=== PATIENT | female | born 1980 | race Caucasian/White ===

== ENCOUNTER 2021-07-13 07:52 | Inpatient (IN) ==
[2021-07-13] MEDS ORDERED: CeFAZolin Syr 2,000MG/20 ML 2,000 MG/20 ML SYRINGE IVPB ONE (08:19)
[2021-07-13] MEDS ORDERED: *HR* Rocuronium Bromide 50 MG/5 ML VIAL ONE ×3 (08:25→12:24)
[2021-07-13] MEDS ORDERED: *HR* Succinylcholine 200 MG/10 ML VIAL IVP ONE (08:25)
[2021-07-13] MEDS ORDERED: Lidocaine HCL 4 ML Topical Solution (Laryng-O-Jet Kit Sterile Pak) TP ONE (08:25)
[2021-07-13] MEDS ORDERED: Lidocaine -MPF 2% 2 ML VIAL ONE (08:25)
[2021-07-13] MEDS ORDERED: *HR* Propofol 200 MG/20 ML VIAL IVP ONE (08:25)
[2021-07-13] MEDS ORDERED: *HR* Midazolam HCl 2 MG/2 ML VIAL ONE (08:25)
[2021-07-13] MEDS ORDERED: *HR* FentaNYL (PF) 100 MCG/2 ML VIAL ONE (08:25)
[2021-07-13] MEDS ORDERED: Ondansetron 4 MG/2 ML VIAL ONE (08:25)
[2021-07-13] MEDS ORDERED: Famotidine 20 MG TABLET PO ONE (08:30)
[2021-07-13] MEDS ORDERED: Ringers Solution, Lactated 1,000 ML IVC SCH ×2 (08:30→17:29)
[2021-07-13] MEDS ORDERED: Ondansetron 4 MG/2 ML VIAL IVP PRN ×2 (09:21→17:29)
[2021-07-13] MEDS ORDERED: *HR* HYDROmorphone PF 0.5 MG/0.5 ML SYRINGE IVP PRN (09:21)
[2021-07-13] MEDS ORDERED: Povidone-Iodine 45 ML, Sodium Chloride IRRigation 1,000 ML IR ONE (10:30)
[2021-07-13] MEDS ORDERED: Tranexamic Acid 1,000 MG/10 ML VIAL ONE ×2 (10:37→14:21)
[2021-07-13] MEDS ORDERED: Ketamine HCL *QUVA* 50mg (1mL) SYRINGE ONE (10:54)
[2021-07-13] MEDS ORDERED: EPHEDrine 50 MG/ML VIAL ONE (11:50)
[2021-07-13] MEDS ORDERED: *HR* HYDROMORPHONE 2 MG/ML VIAL ONE ×2 (12:01→13:57)
[2021-07-13] MEDS ORDERED: Sugammadex Sodium 200 MG/2 ML VIAL IV ONE (13:32)
[2021-07-13] MEDS: *HR* FentaNYL (PF) 100 MCG/2 ML VIAL IVP PRN ×4 (14:31→14:58)
[2021-07-13] MEDS ORDERED: *HR* OxyCODONE/APAP 5/325 TABLET PO PRN (15:42)
[2021-07-13] MEDS ORDERED: Ketorolac 30 MG/ML VIAL IVP PRN (15:42)
[2021-07-13] MEDS ORDERED: Pregabalin 75 MG CAPSULE PO ONE (15:45)
[2021-07-13] MEDS ORDERED: *HR* Promethazine 25 MG/ML VIAL IM PRN (17:29)
[2021-07-13] MEDS ORDERED: Sennosides 8.6 MG TABLET PO PRN (17:29)
[2021-07-13] MEDS ORDERED: *HR* HYDROmorphone (PF) 1 MG/ML SYRINGE IVP PRN (17:29)
[2021-07-13] MEDS ORDERED: *HR* OxyCODONE Immed Rel 5 MG TABLET PO PRN (17:29)
[2021-07-13] MEDS ORDERED: Naloxone 0.4 MG/ML INJ IVP PRN (17:29)
[2021-07-13] MEDS ORDERED: MOM Conc 10 ML UD.LIQ PO PRN (17:29)
[2021-07-13] MEDS: Ascorbic Acid 500 MG TABLET PO SCH (18:01)
[2021-07-13] MEDS: Gabapentin 300 MG CAPSULE PO SCH ×2 (18:01→20:32)
[2021-07-13] MEDS: Ketorolac 30 MG/ML VIAL IVP SCH ×2 (18:01→23:56)
[2021-07-13] MEDS: CeFAZolin 2 GM/120 ML BAG IVPB SCH (18:02)
[2021-07-13] MEDS: *HR* OxyCODONE Immed Rel 5 MG TABLET PO PRN (20:32)
[2021-07-14] MEDS: CeFAZolin 2 GM/120 ML BAG IVPB SCH (00:57)
[2021-07-14] MEDS: *HR* OxyCODONE Immed Rel 5 MG TABLET PO PRN ×6 (00:57→19:35)
[2021-07-14] MEDS: Ketorolac 30 MG/ML VIAL IVP SCH ×4 (04:47→23:41)
[2021-07-14] MEDS: Ascorbic Acid 500 MG TABLET PO SCH ×2 (06:17→16:09)
[2021-07-14] MEDS: Gabapentin 300 MG CAPSULE PO SCH ×3 (06:17→19:35)
[2021-07-14 06:56] LABS: Basophils % 0.1 %; Hematocrit 34.4 % (35.3-44.9); Immature Granulocytes % 0.3 % (0-4); Lymphocytes # 0.9 K/mcL (0.6-4.6); Lymphocytes % 8.7 %; Mean Corpuscular Hemoglobin 29.4 pg (28.0-33.3); Mean Platelet Volume 10.3 fL (9.4-12.4); Monocytes # 0.9 K/mcL (0.0-1.3); Monocytes % 8.5 %; Neutrophils # 8.5 K/mcL (1.6-8.9); Platelet Count 342 K/mcL (140-400); Red Blood Count 3.74 M/mcL (3.82-4.97); Red Cell Distribution Width 12.7 % (11.5-14.5); Segmented Neutrophils % 82.4 %; White Blood Count 10.3 K/mcL (4.3-11.1)
[2021-07-14 07:14] LABS: BUN/Creatinine Ratio 13 (6-26); Blood Urea Nitrogen 11 mg/dL (6-20); Carbon Dioxide 21 mEq/L (23-29); Chloride 104 mEq/L (98-107); Glucose 130 mg/dL (70-105); Osmolality,Calculated 279 (280-300); Potassium 4.1 mEq/L (3.5-5.1); Sodium 134 mEq/L (136-145); eGFR For African Americans > 60 (> 60); eGFR For Non-African Americans > 60 (> 60)
[2021-07-14] MEDS: Furosemide 20 MG TABLET PO SCH (08:21)
[2021-07-14] MEDS: Multivit/Ca/Min/Fe/FA 1 TAB TABLET PO SCH (08:21)
[2021-07-14] MEDS: Aspirin Enteric Coated 325 MG Tablet PO SCH ×2 (14:46→19:35)
[2021-07-15] MEDS: *HR* OxyCODONE Immed Rel 5 MG TABLET PO PRN ×4 (01:44→12:11)
[2021-07-15] MEDS: Ketorolac 30 MG/ML VIAL IVP SCH (04:23)
[2021-07-15 04:24] VITALS: TEMP 97.7
[2021-07-15 06:22] LABS: Basophils % 0.3 %; Eosinophils # 0.3 K/mcL (0.0-0.6); Eosinophils % 3.9 %; Hematocrit 34.6 % (35.3-44.9); Hemoglobin 10.9 g/dL (11.5-15.4); Immature Granulocytes % 0.3 % (0-4); Lymphocytes # 1.9 K/mcL (0.6-4.6); Mean Corpuscular HGB Conc 31.5 g/dL (31.6-35.5); Mean Corpuscular Hemoglobin 29.9 pg (28.0-33.3); Mean Corpuscular Volume 95.1 fL (83.0-100.0); Mean Platelet Volume 10.4 fL (9.4-12.4); Monocytes # 0.6 K/mcL (0.0-1.3); Monocytes % 8.3 %; Neutrophils # 4.7 K/mcL (1.6-8.9); Platelet Count 262 K/mcL (140-400); Red Blood Count 3.64 M/mcL (3.82-4.97); Red Cell Distribution Width 13.2 % (11.5-14.5); Segmented Neutrophils % 62.2 %; White Blood Count 7.5 K/mcL (4.3-11.1)
[2021-07-15 06:45] LABS: BUN/Creatinine Ratio 14 (6-26); Blood Urea Nitrogen 12 mg/dL (6-20); Calcium 8.7 mg/dL (8.6-10.3); Carbon Dioxide 23 mEq/L (23-29); Chloride 106 mEq/L (98-107); Glucose 94 mg/dL (70-105); Osmolality,Calculated 284 (280-300); Potassium 4.1 mEq/L (3.5-5.1); Sodium 137 mEq/L (136-145); eGFR For African Americans > 60 (> 60); eGFR For Non-African Americans > 60 (> 60)
[2021-07-15 07:02] VITALS: BP 121/71; PULSE 82; O2SAT 99
[2021-07-15] MEDS: Multivit/Ca/Min/Fe/FA 1 TAB TABLET PO SCH (09:07)
[2021-07-15] MEDS: Ascorbic Acid 500 MG TABLET PO SCH (09:07)
[2021-07-15] MEDS: Gabapentin 300 MG CAPSULE PO SCH (09:08)
[2021-07-15] MEDS: Furosemide 20 MG TABLET PO SCH (09:08)
[2021-07-15] MEDS: Aspirin Enteric Coated 325 MG Tablet PO SCH (09:08)
== END 2021-07-15 12:12 | disposition home or self-care (01) | DRG 467 ==
LOC: SDCAOSI 07:52 → 4WAOSI 16:46
PROVIDERS: ADMIT Orthopaedic Surgery; ATTEND Orthopaedic Surgery

== ENCOUNTER 2021-08-21 15:15 | Inpatient (IN) ==
[2021-08-21] MEDS ORDERED: *HR* HYDROmorphone (PF) 1 MG/ML SYRINGE IVP ONE ×2 (20:44→22:41)
[2021-08-21] MEDS ORDERED: Iopamidol - 370 500 ML MLS IVP ONE (20:44)
[2021-08-21 21:26] LABS: Basophils % 0.3 %; Eosinophils # 0.3 K/mcL (0.0-0.6); Eosinophils % 3.1 %; Hematocrit 33.3 % (35.3-44.9); Hemoglobin 10.3 g/dL (11.5-15.4); Immature Granulocytes % 0.7 % (0-4); Lymphocytes # 1.2 K/mcL (0.6-4.6); Lymphocytes % 12.3 %; Mean Corpuscular HGB Conc 30.9 g/dL (31.6-35.5); Mean Corpuscular Hemoglobin 28.2 pg (28.0-33.3); Mean Corpuscular Volume 91.2 fL (83.0-100.0); Mean Platelet Volume 9.1 fL (9.4-12.4); Monocytes # 0.6 K/mcL (0.0-1.3); Monocytes % 6.5 %; Neutrophils # 7.3 K/mcL (1.6-8.9); Platelet Count 605 K/mcL (140-400); Red Blood Count 3.65 M/mcL (3.82-4.97); Red Cell Distribution Width 13.1 % (11.5-14.5); Segmented Neutrophils % 77.1 %; White Blood Count 9.5 K/mcL (4.3-11.1)
[2021-08-21 21:46] LABS: Alanine Aminotransferase 24 Units/L (7-52); Albumin 3.6 g/dL (3.5-5.7); Albumin/Globulin Ratio 0.9 (1.1-2.2); Alkaline Phosphatase 129 Units/L (34-104); Aspartate Amino Transferase 18 Units/L (13-39); BUN/Creatinine Ratio 16 (6-26); Bilirubin,Total 0.3 mg/dL (0.3-1.0); Blood Urea Nitrogen 13 mg/dL (6-20); C-Reactive Protein 146 mg/L (Less than 10); Calcium 9.4 mg/dL (8.6-10.3); Carbon Dioxide 24 mEq/L (23-29); Chloride 98 mEq/L (98-107); Glucose 90 mg/dL (70-105); Osmolality,Calculated 272 (280-300); Potassium 4.3 mEq/L (3.5-5.1); Sodium 131 mEq/L (136-145); Total Protein 7.6 g/dL (6.4-8.9); eGFR For African Americans > 60 (> 60); eGFR For Non-African Americans > 60 (> 60)
[2021-08-21] MEDS ORDERED: Vancomycin 1,750 MG/517.5 ML IV.SOLN IVPB ONE (22:41)
[2021-08-21] MEDS ORDERED: cefTRIAXone 1,000 MG in Water for inj. (sterile) 10 ML IVP ONE (22:42)
[2021-08-22] MEDS ORDERED: *HR* HYDROmorphone (PF) 1 MG/ML SYRINGE IVP ONE (02:18)
[2021-08-22] MEDS ORDERED: Ondansetron 4 MG/2 ML VIAL IVP PRN ×2 (02:28→14:38)
[2021-08-22] MEDS ORDERED: Naloxone 0.4 MG/ML INJ IVP PRN ×2 (02:28→14:38)
[2021-08-22] MEDS ORDERED: Ketorolac 30 MG/ML VIAL IVP PRN (02:28)
[2021-08-22] MEDS ORDERED: Acetaminophen 325 MG TABLET PO PRN (02:28)
[2021-08-22] MEDS ORDERED: Lidocaine -MPF 2% 2 ML VIAL ONE (11:27)
[2021-08-22] MEDS ORDERED: *HR* FentaNYL (PF) 100 MCG/2 ML VIAL ONE (11:27)
[2021-08-22] MEDS ORDERED: Ondansetron 4 MG/2 ML VIAL ONE (11:27)
[2021-08-22] MEDS ORDERED: *HR* Propofol 200 MG/20 ML VIAL IVP ONE ×3 (11:28→13:28)
[2021-08-22] MEDS ORDERED: *HR* Midazolam HCl 2 MG/2 ML VIAL ONE (11:28)
[2021-08-22] MEDS ORDERED: Famotidine 20 MG/2 ML VIAL IVP ONE (11:33)
[2021-08-22] MEDS ORDERED: Acetaminophen IV 1,000 MG/100 ML BAG IVPB ONE (11:33)
[2021-08-22] MEDS ORDERED: Vancomycin 1,750 MG/517.5 ML IV.SOLN IVPB SCH (12:00)
[2021-08-22] MEDS: Gabapentin 300 MG CAPSULE PO SCH ×2 (15:16→20:13)
[2021-08-22] MEDS: Vancomycin 1,750 MG/517.5 ML IV.SOLN IVPB SCH (15:18)
[2021-08-22 15:30] LABS: Source of Body Fluid left hip seroma
[2021-08-22 17:24] LABS: Appearance of Body Fluid Hazy (Clear); Volume of Body Fluid 50 mL
[2021-08-22] MEDS: Ketorolac 30 MG/ML VIAL IVP SCH (18:14)
[2021-08-22] MEDS: Acetaminophen 325 MG TABLET PO SCH (18:14)
[2021-08-22] MEDS ORDERED: cefTRIAXone 1,000 MG in 0.9 % Sodium Chloride 10 ML IVPB SCH (22:00)
[2021-08-22] MEDS: cefTRIAXone 1,000 MG in 0.9 % Sodium Chloride 10 ML IVPB SCH (22:58)
[2021-08-23] MEDS: Ketorolac 30 MG/ML VIAL IVP SCH ×4 (00:35→18:20)
[2021-08-23] MEDS: Acetaminophen 325 MG TABLET PO SCH ×4 (00:36→18:13)
[2021-08-23] MEDS: Vancomycin 1,750 MG/517.5 ML IV.SOLN IVPB SCH ×2 (04:03→13:49)
[2021-08-23 05:34] LABS: Basophils % 0.1 %; Hematocrit 31.6 % (35.3-44.9); Hemoglobin 9.9 g/dL (11.5-15.4); Immature Granulocytes % 0.9 % (0-4); Lymphocytes # 0.7 K/mcL (0.6-4.6); Lymphocytes % 8.8 %; Mean Corpuscular HGB Conc 31.3 g/dL (31.6-35.5); Mean Corpuscular Volume 89.5 fL (83.0-100.0); Mean Platelet Volume 9.1 fL (9.4-12.4); Monocytes # 0.2 K/mcL (0.0-1.3); Monocytes % 2.8 %; Neutrophils # 6.9 K/mcL (1.6-8.9); Platelet Count 635 K/mcL (140-400); Red Blood Count 3.53 M/mcL (3.82-4.97); Red Cell Distribution Width 12.7 % (11.5-14.5); Segmented Neutrophils % 87.4 %; White Blood Count 7.9 K/mcL (4.3-11.1)
[2021-08-23 06:02] LABS: BUN/Creatinine Ratio 19 (6-26); Blood Urea Nitrogen 13 mg/dL (6-20); Calcium 9.3 mg/dL (8.6-10.3); Carbon Dioxide 22 mEq/L (23-29); Chloride 105 mEq/L (98-107); Glucose 148 mg/dL (70-105); Magnesium 2.2 mg/dL (1.6-2.6); Osmolality,Calculated 287 (280-300); Phosphorous 3.1 mg/dL (2.7-4.5); Potassium 4.1 mEq/L (3.5-5.1); Sodium 137 mEq/L (136-145); eGFR For African Americans > 60 (> 60); eGFR For Non-African Americans > 60 (> 60)
[2021-08-23] MEDS: Gabapentin 300 MG CAPSULE PO SCH ×3 (09:09→20:16)
[2021-08-23] MEDS: Furosemide 20 MG TABLET PO SCH (09:11)
[2021-08-23] MEDS: *HR* OxyCODONE Immed Rel 15 MG TABLET PO PRN ×4 (13:48→23:26)
[2021-08-23] MEDS: *HR* Heparin 5,000 UNIT/ML VIAL SQ SCH (18:08)
[2021-08-23] MEDS: cefTRIAXone 1,000 MG in 0.9 % Sodium Chloride 10 ML IVPB SCH (22:37)
[2021-08-24] MEDS: Acetaminophen 325 MG TABLET PO SCH ×4 (01:07→18:22)
[2021-08-24] MEDS: Ketorolac 30 MG/ML VIAL IVP SCH ×4 (01:08→18:23)
[2021-08-24] MEDS: Vancomycin 1,750 MG/517.5 ML IV.SOLN IVPB SCH ×2 (03:09→15:39)
[2021-08-24 05:32] LABS: BUN/Creatinine Ratio 24 (6-26); Blood Urea Nitrogen 15 mg/dL (6-20); Calcium 8.3 mg/dL (8.6-10.3); Carbon Dioxide 23 mEq/L (23-29); Chloride 108 mEq/L (98-107); Glucose 87 mg/dL (70-105); Osmolality,Calculated 286 (280-300); Phosphorous 2.7 mg/dL (2.7-4.5); Potassium 4.2 mEq/L (3.5-5.1); Sodium 138 mEq/L (136-145); eGFR For African Americans > 60 (> 60); eGFR For Non-African Americans > 60 (> 60)
[2021-08-24] MEDS: *HR* Heparin 5,000 UNIT/ML VIAL SQ SCH ×2 (05:34→18:22)
[2021-08-24] MEDS: Gabapentin 300 MG CAPSULE PO SCH ×3 (05:35→18:33)
[2021-08-24] MEDS: *HR* OxyCODONE Immed Rel 15 MG TABLET PO PRN ×6 (05:48→21:44)
[2021-08-24] MEDS: Furosemide 20 MG TABLET PO SCH (08:05)
[2021-08-24 10:09] LABS: Basophils % 0.4 %; Eosinophils # 0.1 K/mcL (0.0-0.6); Eosinophils % 1.1 %; Hematocrit 29.9 % (35.3-44.9); Hemoglobin 9.1 g/dL (11.5-15.4); Immature Granulocytes % 1.9 % (0-4); Lymphocytes # 1.4 K/mcL (0.6-4.6); Lymphocytes % 24.6 %; Mean Corpuscular HGB Conc 30.4 g/dL (31.6-35.5); Mean Corpuscular Hemoglobin 27.6 pg (28.0-33.3); Mean Corpuscular Volume 90.6 fL (83.0-100.0); Monocytes # 0.3 K/mcL (0.0-1.3); Monocytes % 5.3 %; Neutrophils # 3.8 K/mcL (1.6-8.9); Platelet Count 539 K/mcL (140-400); Segmented Neutrophils % 66.7 %; White Blood Count 5.7 K/mcL (4.3-11.1)
[2021-08-24] MEDS: cefTRIAXone 1,000 MG in 0.9 % Sodium Chloride 10 ML IVPB SCH (21:44)
[2021-08-25] MEDS: Ketorolac 30 MG/ML VIAL IVP SCH ×2 (00:59→05:32)
[2021-08-25] MEDS: *HR* OxyCODONE Immed Rel 15 MG TABLET PO PRN ×3 (00:59→09:17)
[2021-08-25] MEDS: Acetaminophen 325 MG TABLET PO SCH ×2 (01:02→05:31)
[2021-08-25] MEDS: Vancomycin 1,750 MG/517.5 ML IV.SOLN IVPB SCH (03:30)
[2021-08-25] MEDS: Gabapentin 300 MG CAPSULE PO SCH (05:42)
[2021-08-25] MEDS: *HR* Heparin 5,000 UNIT/ML VIAL SQ SCH (05:44)
[2021-08-25 06:35] LABS: BUN/Creatinine Ratio 20 (6-26); Blood Urea Nitrogen 14 mg/dL (6-20); Calcium 8.9 mg/dL (8.6-10.3); Carbon Dioxide 21 mEq/L (23-29); Chloride 105 mEq/L (98-107); Glucose 75 mg/dL (70-105); Osmolality,Calculated 283 (280-300); Phosphorous 3.9 mg/dL (2.7-4.5); Potassium 4.3 mEq/L (3.5-5.1); Sodium 137 mEq/L (136-145); eGFR For African Americans > 60 (> 60); eGFR For Non-African Americans > 60 (> 60)
[2021-08-25 06:55] VITALS: BP 124/85; PULSE 72; TEMP 97.9; O2SAT 98
[2021-08-25] MEDS: Furosemide 20 MG TABLET PO SCH (08:02)
[2021-08-25 08:20] LABS: Basophils % 0.7 %; Eosinophils # 0.3 K/mcL (0.0-0.6); Eosinophils % 4.5 %; Hematocrit 30.4 % (35.3-44.9); Immature Granulocytes % 1.8 % (0-4); Lymphocytes # 1.6 K/mcL (0.6-4.6); Mean Corpuscular HGB Conc 30.3 g/dL (31.6-35.5); Mean Corpuscular Volume 92.7 fL (83.0-100.0); Monocytes # 0.4 K/mcL (0.0-1.3); Monocytes % 6.2 %; Neutrophils # 3.6 K/mcL (1.6-8.9); Platelet Count 483 K/mcL (140-400); Red Blood Count 3.28 M/mcL (3.82-4.97); Red Cell Distribution Width 13.1 % (11.5-14.5); Segmented Neutrophils % 60.8 %
[2021-08-25 08:37] LABS: Hemoglobin 9.2 g/dL (11.5-15.4)
== END 2021-08-25 11:56 | disposition home or self-care (01) | DRG 863 ==
LOC: 3BNU 15:15 → EMEROOARM 15:15 → SUATTDRO 08-22 06:30 → 3BNU 08-22 08:48
PROVIDERS: ADMIT Internal Medicine; ATTEND Internal Medicine